=== PATIENT | male | born 2005 ===

== ENCOUNTER 2025-04-21 01:46 | Inpatient (IN) | payer OTHER ==
[2025-04-21] VITALS (19 sets, daily range): BP systolic 88–140; BP diastolic 37–83
[~2025-04-21] VITALS: Ht 180.3 cm; Wt 77.0 kg
[2025-04-21 01:21] LABS: BASOPHILS ABSOLUTE AUTO 0.08 K/mm3 (0.00-0.23); BASOPHILS PERCENT AUTO 1 % (0-2); EOSINOPHILS ABSOLUTE AUTO 0.16 K/mm3 (0.00-0.68); EOSINOPHILS PERCENT AUTO 2 % (0-6); Hematocrit 45.2 % (37.0-53.0); Hemoglobin 15.6 g/dL (13.5-17.5); LYMPHOCYTES ABSOLUTE AUTO 2.61 K/mm3 (0.84-5.20); LYMPHOCYTES PERCENT AUTO 30 % (21-46); MONOCYTES ABSOLUTE AUTO 0.90 K/mm3 (0.16-1.47); MONOCYTES PERCENT AUTO 10 % (4-13); Mean Corpuscular HGB Conc 34.5 g/dL (31.5-36.5); Mean Corpuscular Volume 89 fL (80-100); NEUTROPHILS ABSOLUTE AUTO 4.84 K/mm3 (1.96-9.15); NEUTROPHILS PERCENT AUTO 56 % (41-73); Platelet Count 228 K/mm3 (150-400); RDW Coefficient Variation 12.4 % (11.7-14.2)
[~2025-04-21 01:46] MED LIST: Etomidate 2MG / ML 10ML Vial IV ONE; NS 1,000 ML IV ONE; NS 1,000 ML IV SCH; SuccINYLCHOLINE Chloride 20 MG/ML 10ML Injection IV ONE
[2025-04-21 01:48] LABS: Alanine Aminotransfer (ALT/SGP 106.0 U/L (12-78); Albumin, Blood 4.2 g/dL (3.4-5.0); Albumin/Globulin Ratio 1.4 (0.8-1.8); Anion Gap 10.0 mmol/L (3-11); Aspartate Aminotrans (AST/SGOT 30.0 U/L (12-37); Bilirubin, Total 0.3 mg/dL (0.1-1.0); Blood Urea Nitrogen 24.0 mg/dL (8-24); CO2, Blood 22.0 mmol/L (21-32); Calcium, Blood 8.9 mg/dL (8.5-10.1); Chloride, Blood 108.0 mmol/L (98-108); Creatinine, Blood 0.93 mg/dL (0.60-1.20); Ethanol (Alcohol), Blood, Med 212.0 mg/dL; Globulin, Blood 3.0 g/dL (2.2-4.0); Glucose, Blood 121.0 mg/dL (70-99); Potassium, Blood 3.2 mmol/L (3.5-5.5); Sodium, Blood 137.0 mmol/L (136-145); Total Protein, Blood 7.2 g/dL (6.4-8.2)
[2025-04-21] MEDS ORDERED: Ondansetron HCl 2 MG / ML 2ML Vial IV PRN (02:00)
[2025-04-21] MEDS ORDERED: FentaNYL Citrate 50 MCG/ML 2 ML Injection IV PRN (02:15)
[2025-04-21] MEDS ORDERED: FLU VACC TS2025-26(6MOS UP)/PF 45 MCG/0.5 ML SYRINGE IM SCH (02:15)
--- NOTE | 2025-04-21 03:00 | NUR ---
ASSUMED CARE GOT REPORT @ 0235 FROM ABDULAZIZ SOUSA FROM ED. PATIENT TRANSFERED TO ICU ROOM 7 @0241. PATIENT INTUBATED AND SEDATED, ET TUBE 8.0 @24CM AT TEETH, VENT SETTING AC/VC 16/500/5.0/30%. PATIENT IN SOFT RESTRAINTS BILATERAL WRISTS. HAS DEY SRAINING TO GRAVITY. RIGHT AND LEFT PERIPHERAL 18G WRIST IV'S. PROPOFOL INFUSING @30MCG. CALL LIGHT WITHIN REACH.
[2025-04-21 03:39] LABS: BASOPHILS ABSOLUTE AUTO 0.06 K/mm3 (0.00-0.23); BASOPHILS PERCENT AUTO 0 % (0-2); EOSINOPHILS ABSOLUTE AUTO 0.01 K/mm3 (0.00-0.68); EOSINOPHILS PERCENT AUTO 0 % (0-6); Hematocrit 42.0 % (37.0-53.0); Hemoglobin 15.1 g/dL (13.5-17.5); IMMATURE GRAN ABSOLUTE AUTO 0.05 K/mm3 (0.00-0.10); IMMATURE GRAN PERCENT AUTO 0 % (0-1); LYMPHOCYTES ABSOLUTE AUTO 0.84 K/mm3 (0.84-5.20); LYMPHOCYTES PERCENT AUTO 5 % (21-46); MONOCYTES ABSOLUTE AUTO 1.04 K/mm3 (0.16-1.47); MONOCYTES PERCENT AUTO 6 % (4-13); Mean Corpuscular HGB Conc 36.0 g/dL (31.5-36.5); Mean Corpuscular Volume 88 fL (80-100); NEUTROPHILS ABSOLUTE AUTO 15.04 K/mm3 (1.96-9.15); NEUTROPHILS PERCENT AUTO 88 % (41-73); NRBC ABSOLUTE 0.00 K/mm3 (0.00-0.02); NRBC Auto 0.0 /100 WBC (0.0-0.2); Platelet Count 216 K/mm3 (150-400); RDW Coefficient Variation 12.5 % (11.7-14.2); RDW Standard Deviation 40.7 fL (35.1-46.3)
[2025-04-21 03:57] LABS: Alanine Aminotransfer (ALT/SGP 104.0 U/L (12-78); Albumin, Blood 3.8 g/dL (3.4-5.0); Albumin/Globulin Ratio 1.3 (0.8-1.8); Anion Gap 10.0 mmol/L (3-11); Aspartate Aminotrans (AST/SGOT 34.0 U/L (12-37); Bilirubin, Total 0.6 mg/dL (0.1-1.0); Blood Urea Nitrogen 21.0 mg/dL (8-24); CO2, Blood 20.0 mmol/L (21-32); Calcium, Blood 8.5 mg/dL (8.5-10.1); Chloride, Blood 110.0 mmol/L (98-108); Creatinine, Blood 0.82 mg/dL (0.60-1.20); Globulin, Blood 3.0 g/dL (2.2-4.0); Glucose, Blood 106.0 mg/dL (70-99); Potassium, Blood 4.2 mmol/L (3.5-5.5); Sodium, Blood 136.0 mmol/L (136-145); Total Protein, Blood 6.8 g/dL (6.4-8.2)
[2025-04-21] MEDS ORDERED: NS 1,000 ML IV SCH (04:10)
[2025-04-21] MEDS ORDERED: LORazepam 2 MG/ML 1ML Injection IV ONE (05:20)
[2025-04-21] MEDS ORDERED: Pantoprazole Sodium 40 MG Injection IV SCH (06:00)
--- NOTE | 2025-04-21 06:35 | NUR ---
SHIFT SUMMARY PATIENT INTUBATED AND SEDATED. PATIENT AFERIBLE THROUGH SHIFT. LUNGS CLEAR BILATERALY. HR IN THE 70-80'S AND SBP 110'S. ET TUBE 8.0 @24CM AT TEETH, VENT SETTINGS AC/VC 16/500/5.0/30%. HAS OG TUBE @56 CONNECTED TO LOW INTERMITTENT SUCTIONS. PATIENT HAS DEY DRAINING TO GRAVITY. RIGHT AND LEFT WRIST PERIPHERAL IV'S, PROPOFOL INFUSING @ 50MCG AND NS @100MLS. CALL LIGHT WITHIN REACH.
[2025-04-21] MEDS ORDERED: Cetylpyridinium Chloride 1 EA MISC MT SCH (08:00)
[2025-04-21] MEDS ORDERED: Enoxaparin 40 MG/0.4 ML SYR SC SCH (09:00)
[2025-04-21] MEDS ORDERED: Hydrogen Peroxide 1.5 % Solution MT SCH (12:00)
--- NOTE | 2025-04-21 13:21 | NUR ---
patient discharged to home. Discharge instructions read to patient, patient given oppurtunity to ask questions. Patient did not have questions, left unit under own power accompanied with friends.
[2025-04-21] MEDS ORDERED: Etomidate 2MG / ML 10ML Vial XX ONE (21:14)
[2025-04-21] MEDS ORDERED: SuccINYLCHOLINE Chloride 100 MG/5 ML 5MLSYR IV ONE (21:14)
== END 2025-04-21 13:20 | disposition home or self-care (01) | DRG 896 ==
LOC: ER 01:46 → ICUE 02:13
PROVIDERS: Student in an Organized Health Care Education/Training Program; ADMIT Student in an Organized Health Care Education/Training Program
PROC: 5A1935Z Respiratory Ventilation, Less than 24 Consecutive Hours (ICD-10-PCS; principal; 2025-04-21)
PROC: 0BH17EZ Insertion of Endotracheal Airway into Trachea, Via Natural or Artificial Opening (ICD-10-PCS; 2025-04-21)
DX: F10.129 Alcohol abuse with intoxication, unspecified (principal); G93.41 Metabolic encephalopathy; J96.01 Acute respiratory failure with hypoxia; Y90.7 Blood alcohol level of 200-239 mg/100 ml
CPT/HCPCS: 31500; 36415; 51702; 71045; 80053; 80320; 83690; 85025; 94002; 96374; 99291-25; J0330; J1650; J2060; J2405; J2470; J2704; J3411; J7030